=== PATIENT | female | born 1995 | race Caucasian/White ===

== ENCOUNTER 2018-08-07 12:13 | Inpatient (IN) ==
--- NOTE | 2018-08-07 13:51 | ED ---
HPI General Chief Complaint: Overdose Stated Complaint: Psych Eval Time Seen by Provider: 08/07/18 12:53 Source: patient Mode of arrival: ambulatory Limitations: no limitations History of Present Illness HPI Narrative: She denies chest pain, shortness breath, abdominal pain. Denies continued nausea or vomiting.23-year-old female presents to the emergency department admitting that she took 100 pills of Tylenol yesterday at approximately 3 PM in an attempt to kill herself. Says she vomited for about 10 minutes last night. She is still having random thoughts of suicide. She has history of suicidal attempt by taking 400 sleeping pills in 2016. Denies chest pain, shortness breath, abdominal pain. Denies continued nausea or vomiting. Denies lightheadedness or dizziness. Denies auditory visual hallucinations. Denies illicit drug use, tobacco use. Reports occasional alcohol use. Says her symptoms of wanting to kill herself are aggravated by being overwhelmed with school and work, having mental health issues and feeling like she is "blacking out "and forgetting things. Symptoms are aggravated by the stress of work and school. No known relieving factors. Symptoms are severe in severity. No treatments tried. Duration chronic. History of depression and anxiety. Denies other significant past medical history. No known allergies. Does not have a psychiatrist. Primary care provider is in [place]. She has no other medical complaints. No other modifying factors or associated signs and symptoms. Related Data Home Medications Medication Instructions Recorded Confirmed estradiol 2 mg PO TID 08/01/18 08/07/18 progesterone micronized 100 mg PO QAM 08/01/18 08/07/18 risperidone [Risperdal] 2 mg PO DAILY 08/01/18 08/07/18 sertraline [Zoloft] 200 mg PO DAILY 08/01/18 08/07/18 Allergies Allergy/AdvReac Type Severity Reaction Status Date / Time No Known Allergies Allergy Verified 08/06/18 17:31 Review of Systems ROS: all other systems reviewed are negative FOR[facility]LY [facility], [facility] Medical History Medical History Anxiety (Acute) Depression (Acute) Dissociative identity disorder (Acute) Oqwd-wb-pseyia transgender person (Acute) Person who has undergone gender reassignment surgery (Acute) Transgender with history of sex reassignment surgery (Acute) Social History Social History Substance History: No History of Abuse Second Hand Smoke Exposure: No Smoking Status: Never smoker How Often Do You Have a Drink Containing Alcohol: Never Recent Travel in [facility] within the Last 8 Weeks: No Recent Out of Country Travel within the Last 8 Weeks: No Immunization History Tetanus Immunization: Unsure Hx Influenza Vaccine This Season: No Exam Narrative Exam Narrative: GENERAL: Well-nourished, well-developed female patient , in no acute distress SKIN: Warm and dry. HEAD: Atraumatic. Normocephalic. EYES: Pupils equal and round. ENT: Mucosa pink and moist. NECK: Supple. Trachea midline. CARDIOVASCULAR: Regular rate and rhythm. No murmur appreciated. RESPIRATORY: No accessory muscle use. Clear to auscultation. Breath sounds equal bilaterally. GASTROINTESTINAL: Abdomen soft, non-tender, nondistended. Hepatic and splenic margins not palpable. Bowel sounds are active 4 quadrants. MUSCULOSKELETAL: No obvious deformities. No clubbing. No cyanosis. No edema. NEUROLOGICAL: Awake and alert. Oriented 3. No obvious cranial nerve deficits. Motor grossly within normal limits. Normal speech. Moves all extremities. 5/5 strength to all extremities. PSYCHIATRIC: No delusional thought processes. No hallucinations. Course Initial Documented Vital Signs Temperature 98.7 F 08/07/18 12:23 Pulse Rate 93 H 08/07/18 12:23 Respiratory Rate 18 08/07/18 12:23 Blood Pressure 135/68 08/07/18 12:23 Pulse Oximetry 99 08/07/18 12:23 Last Documented Vital Signs Temperature 97.6 F 08/07/18 17:06 Pulse Rate 81 08/08/18 13:59 Respiratory Rate 16 08/08/18 07:11 Blood Pressure 122/59 L 08/08/18 13:59 Pulse Oximetry 95 08/08/18 13:59 Medical Decision Making SOLE Attestation SOLE supervised visit: Yes Attestation: I, Dr. Saavedra, have reviewed the advance practice practitioner's documentation and am in agreement, met with the patient face to face, made the diagnosis, and the medical decision making was done by me. *My assessment and Findings: Suicidal attempt vs. acetaminophen overdose vs. liver failure 23yo F here after taking a large amount of acetaminophen yesterday. Said she took the whole bottle. However, pt is very well appearing without any nausea, vomiting or abdominal pain. She did say she vomited after taking the pills so may have vomited most out since it is almost 24 hours since her ingestion. Will contact poison control, check labs including liver enzymes and acetaminophen levels. Labs reviewed, no leukocytosis. H/H normal. AST low at 8. ALT and alk phos normal. Acetaminophen level less than 1. Utox negative. Salicylate less than 1.7. Alcohol negative. Pt has been observed in the ED with no symptoms. She has been Rosenthal Act as this was presumed to be suicidal attempt and should be evaluated by psychaitrist. She has been more stress than normal and is medically clear to be evaluated by psychiatrist. MDM Narrative Medical decision making narrative: 23-year-old female presents after taking 100 pills of Tylenol yesterday at approximately 3 PM in an attempt to kill herself. Psych screen ordered and patient will be Rosenthal acted if she chooses to leave prior to psychiatric screen. I discussed patient with Dr. Saavedra and she agrees with my plan of care. Poison control was called and recommendations for care will be ordered. CBC, CMP, coags, acetaminophen level, salicylate level, EKG, IV, IV fluid bolus, UA ordered. 1428: EKG with sinus rhythm; no ST elevation or depression; QRS 86; QTC 407; reviewed by Dr. Saavedra. 1545: CBC unremarkable. CMP unremarkable. TSH 1.580. Salicylates less than 1.7. Acetaminophen less than 2.0. 1700: Coags unremarkable. I discussed patient with Dr. Saavedra and she also evaluated the patient and agrees the patient can be cleared medically for psychiatric evaluation. Patient is medically cleared for psychiatric evaluation. Medical Screen Exam Complete: Yes Emergency Medical Condition: Yes Differential Diagnosis Differential Diagnosis: Acetaminophen overdose, suicidal attempt, depression, medical clearance for psychiatric evaluation Lab Data Result diagrams: 08/07/18 13:25 08/07/18 13:25 Lab Results 08/07/18 08/07/18 08/07/18 Range/Units 13:25 13:25 13:25 WBC 11.0 (4.0-11.0) th/mm3 RBC 4.92 (4.00-5.30) mil/mm3 Hgb 14.0 (11.6-15.3) gm/dL Hct 40.9 (35.0-46.0) % MCV 83.2 (80.0-100.0) fL MCH 28.4 (27.0-34.0) pg MCHC 34.2 (32.0-36.0) % RDW 13.5 (11.6-17.2) % Plt Count 266 (150-450) th/mm3 MPV 9.8 (7.0-11.0) fL Neut % (Auto) 84.0 H (16.0-70.0) % Lymph % (Auto) 9.9 (9.0-44.0) % [place] % (Auto) 4.8 (0.0-8.0) % Eos % (Auto) 0.4 (0.0-4.0) % Baso % (Auto) 0.9 (0.0-2.0) % Neut # (Auto) 9.3 H (1.8-7.7) th/mm3 Lymph # (Auto) 1.1 (1.0-4.8) th/mm3 [place] # (Auto) 0.5 (0.0-0.9) th/mm3 Eos # (Auto) 0.0 (0.0-0.4) th/mm3 Baso # (Auto) 0.1 (0.0-0.2) th/mm3 WBC Differential . Differential Comment Auto diff final PT (9.8-11.6) sec INR Ratio APTT (24.3-30.1) sec Sodium 137 (136-145) meq/L Potassium 3.9 (3.5-5.1) meq/L Chloride 108 H (98-107) meq/L Carbon Dioxide 27.2 (21.0-32.0) meq/L Anion Gap 2 L (5-15) meq/L BUN 16 (7-18) mg/dL Creatinine 0.90 (0.50-1.00) mg/dL Estimated GFR 77 L (>89) mL/min Random Glucose 73 L (74-106) mg/dL Calcium 8.6 (8.5-10.1) mg/dL Total Bilirubin 0.3 (0.2-1.0) mg/dL AST 8 L (15-37) U/L ALT 14 (10-53) U/L Alkaline Phosphatase 78 (45-117) U/L Total Protein 8.2 (6.4-8.2) g/dL Albumin 4.0 (3.4-5.0) g/dL TSH 1.580 (0.358-3.740) uIU/mL Salicylates Less than 1.7 L (2.8-20.0) mg/dL Urine Opiates Screen (Neg) Acetaminophen Less than 2.0 L (10.0-30.0) mcg/mL Ur Barbiturates Screen (Neg) Ur Amphetamines Screen (Neg) U Benzodiazepines Scrn (Neg) Urine Cocaine Screen (Neg) U Cannabinoids Screen (Neg) Serum Alcohol Less than 3 (0-5) mg/dL 08/07/18 08/07/18 Range/Units 14:19 18:04 WBC (4.0-11.0) th/mm3 RBC (4.00-5.30) mil/mm3 Hgb (11.6-15.3) gm/dL Hct (35.0-46.0) % MCV (80.0-100.0) fL MCH (27.0-34.0) pg MCHC (32.0-36.0) % RDW (11.6-17.2) % Plt Count (150-450) th/mm3 MPV (7.0-11.0) fL Neut % (Auto) (16.0-70.0) % Lymph % (Auto) (9.0-44.0) % [place] % (Auto) (0.0-8.0) % Eos % (Auto) (0.0-4.0) % Baso % (Auto) (0.0-2.0) % Neut # (Auto) (1.8-7.7) th/mm3 Lymph # (Auto) (1.0-4.8) th/mm3 [place] # (Auto) (0.0-0.9) th/mm3 Eos # (Auto) (0.0-0.4) th/mm3 Baso # (Auto) (0.0-0.2) th/mm3 WBC Differential Differential Comment PT 11.0 (9.8-11.6) sec INR 1.1 Ratio APTT 30.3 H (24.3-30.1) sec Sodium (136-145) meq/L Potassium (3.5-5.1) meq/L Chloride (98-107) meq/L Carbon Dioxide (21.0-32.0) meq/L Anion Gap (5-15) meq/L BUN (7-18) mg/dL Creatinine (0.50-1.00) mg/dL Estimated GFR (>89) mL/min Random Glucose (74-106) mg/dL Calcium (8.5-10.1) mg/dL Total Bilirubin (0.2-1.0) mg/dL AST (15-37) U/L ALT (10-53) U/L Alkaline Phosphatase (45-117) U/L Total Protein (6.4-8.2) g/dL Albumin (3.4-5.0) g/dL TSH (0.358-3.740) uIU/mL Salicylates (2.8-20.0) mg/dL Urine Opiates Screen Neg (Neg) Acetaminophen (10.0-30.0) mcg/mL Ur Barbiturates Screen Neg (Neg) Ur Amphetamines Screen Neg (Neg) U Benzodiazepines Scrn Neg (Neg) Urine Cocaine Screen Neg (Neg) U Cannabinoids Screen Neg (Neg) Serum Alcohol (0-5) mg/dL Discharge Plan Discharge Disposition Patient Disposition: 30 Still Patient Discharge Condition Condition: Stable Discharge Details Diagnosis: Acetaminophen overdose, Suicide attempt Physicians Team ED Provider: Merle Saavedra ED Midlevel Provider: Samanta Jaime Primary Care Provider: UNKNOWN, Attending Provider: Jon Baltazar Status ED Status: Left Department Discharge Information Discharge Date/Time: 08/08/18 12:35
[2018-08-07] MEDS ORDERED: Sod Chloride 0.9% Inj 1,000 ML IV.SIG SCH (14:00)
[2018-08-07 14:04] LABS: Baso # (Auto) 0.1 th/mm3 (0.0-0.2); Baso % (Auto) 0.9 % (0.0-2.0); Eos % (Auto) 0.4 % (0.0-4.0); Hematocrit 40.9 % (35.0-46.0); Lymph # (Auto) 1.1 th/mm3 (1.0-4.8); Lymph % (Auto) 9.9 % (9.0-44.0); Mean Corpuscular HGB Conc 34.2 % (32.0-36.0); Mean Corpuscular Hemoglobin 28.4 pg (27.0-34.0); Mean Corpuscular Volume 83.2 fL (80.0-100.0); Mean Platelet Volume 9.8 fL (7.0-11.0); Mono # (Auto) 0.5 th/mm3 (0.0-0.9); Mono % (Auto) 4.8 % (0.0-8.0); Neut # (Auto) 9.3 th/mm3 (1.8-7.7); Platelet Count 266 th/mm3 (150-450); Red Blood Count 4.92 mil/mm3 (4.00-5.30); Red Cell Distribution Width 13.5 % (11.6-17.2)
[2018-08-07 14:32] LABS: Anion Gap 2 meq/L (5-15); Aspartate Aminotransferase 8 U/L (15-37); Blood Urea Nitrogen 16 mg/dL (7-18); Calcium 8.6 mg/dL (8.5-10.1); Carbon Dioxide 27.2 meq/L (21.0-32.0); Chloride 108 meq/L (98-107); Glomerular Filtration Rate 77 mL/min (>89); Glucose,Random 73 mg/dL (74-106); Potassium 3.9 meq/L (3.5-5.1); Sodium 137 meq/L (136-145)
[2018-08-07 14:43] LABS: Alanine Aminotransferase 14 U/L (10-53); Alkaline Phosphatase 78 U/L (45-117); Total Protein 8.2 g/dL (6.4-8.2)
[2018-08-07 15:56] LABS: Activated Partial Thrombo Time 30.3 sec (24.3-30.1); INR 1.1 Ratio
[2018-08-07 18:43] LABS: Amphetamine Screen,Urine Neg (Neg); Barbiturate Screen,Urine Neg (Neg); Cannabinoid Screen,Urine Neg (Neg); Cocaine Screen,Urine Neg (Neg)
[2018-08-07 18:49] LABS: Opiate Screen,Urine Neg (Neg)
[2018-08-08] MEDS ORDERED: Bisacodyl 10 MG Supp RECTAL PRN (08:38)
[2018-08-08] MEDS ORDERED: Aluminum/Magnesium/Simethacone Susp 30 ML UDC PO PRN (08:38)
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
--- NOTE | 2018-08-08 17:18 | ECG ---
Date Performed: 08/07/2018 Time Performed: 14:26:09 PTAGE: 23 years EKG: Sinus rhythm WITH SHORT CT INTERVAL POSSIBLE RIGHT VENTRICULAR CONDUCTION DELAY BORDERLINE ECG NO PREVIOUS TRACING DOCTOR: Alberto Kraft Interpretating Date/Time 08/08/2018 17:13:40
[2018-08-08] MEDS: clonazePAM 0.5 MG Tablet PO SCH ×2 (17:52→21:08)
[2018-08-08] MEDS: Senna/Docusate Sodium 8.6/50 MG Tablet PO SCH (21:08)
[2018-08-09] MEDS: clonazePAM 0.5 MG Tablet PO SCH ×3 (06:32→21:03)
[2018-08-09] MEDS: Citalopram 20 MG Tablet PO SCH (08:40)
[2018-08-09] MEDS: Senna/Docusate Sodium 8.6/50 MG Tablet PO SCH ×2 (08:42→21:02)
[2018-08-09 09:46] LABS: Calcium 9.1 mg/dL (8.5-10.1); Carbon Dioxide 26.2 meq/L (21.0-32.0); Potassium 3.5 meq/L (3.5-5.1)
[2018-08-09 09:51] LABS: Chol/HDL Ratio 2.9 Ratio; HDL Cholesterol 47.9 mg/dL (40.0-60.0)
--- NOTE | 2018-08-09 15:12 | P.PNPSY ---
Subjective Remarks: Patient seen for follow up; chart reviewed. Discussion with nursing staff reported that patient had suicide attempt related to stressors, no behavioral disturbances. Patient was found ambulating on the unit noted B, cooperative. Patient states she had been sleeping well, her mood has been "normal" she is mentioning that she was having dissociative episodes forgetting about things with periods of forgetfulness unable to recall overdose stating that this was 1 of these episodes. Patient denies having suicide ideations stating the last time she had this time was 1 month ago. Patient reports stressors include school, work, losing hours "here and there" stating that she had been feeling that she was someplace else currently in her senior year in college. Patient reports that at the time of the overdose she had told her friend that she was a different person. Patient mentions having had a therapist who she had seen in [place] last time was seen with several weeks ago but interested in resuming therapy. Patient states that she has been having episodes of "spacing out" ever since the age of 65 years old. Patient reports her mood at this time is "fine" denies any perceptional services or delusions at this time. Patient mentions not having any adequate support at this time with no outpatient mental provider currently. Patient reports that her previous psychiatrist was that a clinic called [facility]. Review of Systems All other systems reviewed negative except as stated in HPI Mental Status Examination Appearance: Appropriate Consciousness: Alert Orientation: x4 Motor Activity: Normal gait Speech: Unremarkable Language: Adequate Fund of Knowledge: Adequate Attention and Concentration: Adequate Memory: Unremarkable Mood: Other ("Fine") Affect: Sad Thought Process & Associations: Intact Thought Content: Appropriate Hallucination Type: None Delusion Type: None Suicidal Ideation: Yes (Denies today) Suicidal Plan: No Suicidal Intention: No Homicidal Ideation: No Homicidal Plan: No Homicidal Intention: No Insight: Poor Judgment: Poor Assessment and Plan - Assessment (1) Major depressive disorder, recurrent Code(s): F33.9 - Major depressive disorder, recurrent, unspecified Status: Acute - Plan Plan: Patient this time denying any suicide ideations reporting recent overdose as the episode when she was dissociating from self therefore unreliable to contract for safety. We will continue current treatment. We will continue to monitor mood and behavior. Discharge planning in progress. Justification for Continued Inpatient Stay: At risk of further decompensation a lower level of care
[2018-08-09 15:39] LABS: Hemoglobin A1c 4.9 % (4.3-6.0)
[2018-08-10 05:34] VITALS: BP 104/61; PULSE 78; RESP 16; TEMP 97.8; O2SAT 97
[2018-08-10] MEDS: clonazePAM 0.5 MG Tablet PO SCH ×2 (06:16→14:24)
[2018-08-10] MEDS: Senna/Docusate Sodium 8.6/50 MG Tablet PO SCH (08:05)
[2018-08-10] MEDS: Citalopram 20 MG Tablet PO SCH (08:06)
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
== END 2018-08-10 15:30 | disposition home or self-care (01) ==
LOC: NEPD 12:13 → NEDA 08-08 08:40 → H260 08-08 12:57
PROVIDERS: ADMIT Student in an Organized Health Care Education/Training Program; ATTEND Student in an Organized Health Care Education/Training Program